=== PATIENT | female | born 1995 | race Caucasian/White ===

== ENCOUNTER 2021-07-12 10:52 | Emergency (ER) | payer OTHER, SELFPAY ==
[2021-07-12 11:09] VITALS: BP 114/82; PULSE 108; RESP 16; TEMP 36.8; O2SAT 100
--- NOTE | 2021-07-12 11:17 | ED.DENTAL ---
HPI - Dental/Oral General Chief complaint: Dental/Oral Stated complaint: toothache Source: patient History of Present Illness HPI Narrative: A 25-year-old female with some history of dental issues with pain in left lower premolar area currently has a dental cap but has surrounding gum inflammation with some left submandibular gland swelling with no fever chills no shortness of breath. MD Complaint: tooth pain Teeth map: 1. dental pain with palpation with a surrounding gum inflammation and tenderness. Onset (ago): day(s) Duration: constant Severity: moderate Severity scale (1-10): 6 Relieving factors: NSAIDs Exacerbating factors: chewing and cold Context: history of dental caries Related Data Allergies Allergy/AdvReac Type Severity Reaction Status Date / Time blue dye Allergy Unknown Verified 07/12/21 11:14 cobalt Allergy Unknown Verified 07/12/21 11:14 nickel Allergy Unknown Verified 07/12/21 11:14 Penicillins Allergy Unknown Verified 07/12/21 11:14 White Grain Vinegar Allergy Unknown Uncoded 07/12/21 11:14 Review of Systems Review of Systems: All systems reviewed & are unremarkable except as noted in HPI and below PMFSH Past Medical History Medical History Patient denies medical problems Exam Const: General: no acute distress and alert Orientation/consciousness: patient oriented x3 HENMT: Head: normal to inspection and contusion Other: left lower molar tenderness with surrounding gum inflammation Eyes: Conjunctivae: conjunctivae normal Pupils: Equal, round and reactive pupils present EOM: EOMs intact bilaterally Neck: Neck: normal visual inspection Chest: Chest palpation & inspection: normal inspection of the chest Resp: Effort & Inspection: normal respiratory effort Cardio: Rate: regular rate Rhythm: regular rhythm GI: GI Palp: Yes Soft to palpation : General: Yes no CVA tenderness Urinary Catheter: Urinary Catheter: patent and draining Skin: General skin exam: normal color Rashes: no rashes Neuro: General: patient oriented x3 Extrem: General: normal to inspection and no pedal edema Psych: Mental Status: mental status grossly normal Affect: normal affect Course Course Emergency Course: patient with history of dental infection and currently having dental pain with surrounding gum inflammation has taken [id number] ibuprofen with minimal relief. Vital Signs Vital signs: Vital Signs Temperature 36.8 C 07/12/21 11:09 Pulse Rate 108 H 07/12/21 11:09 Respiratory Rate 16 07/12/21 11:09 Blood Pressure 114/82 07/12/21 11:09 Pulse Oximetry 100 07/12/21 11:09 Temperature 36.8 C 07/12/21 11:09 Pulse Rate 108 H 07/12/21 11:09 Respiratory Rate 16 07/12/21 11:09 Blood Pressure 114/82 07/12/21 11:09 Pulse Oximetry 100 07/12/21 11:09 Critical Care Time Critical Care Time Critical Care Time: No Discharge Plan Discharge Clinical Impression: Dental abscess Patient Disposition: Home, Self-Care Condition: Stable Instructions: Antibiotic Form, Dental Abscess (ED) Additional Instructions: Take medicine as prescribed and follow-up with dentist as soon as possible for further evaluation and treatment. Prescriptions: New sulfamethoxazole-trimethoprim [Bactrim DS] 800-160 mg tablet 1 tablet PO Q12H Qty: 20 RF: 0 naproxen 500 mg tablet 500 mg PO BID Qty: 14 RF: 0 Follow-up/Referrals: UNKNOWN,DOCTOR [Primary Care Provider] - Stand Alone Forms: Work/School Release IP Time of Disposition: :
== END 2021-07-12 11:31 | disposition home or self-care (01) ==
PROVIDERS: Emergency Provider Emergency Medicine
DX: K04.7 Periapical abscess without sinus (principal)
CPT/HCPCS: 99283

== ENCOUNTER 2021-12-04 20:28 | Emergency (ER) | payer OTHER, SELFPAY ==
[2021-12-04 20:38] VITALS: BP 126/89; PULSE 113; RESP 17; TEMP 36.6; O2SAT 100
== END 2021-12-04 22:25 | disposition left against medical advice (07) ==
LOC: ANHED 22:30
DX: R51.9 Headache, unspecified (principal)
CPT/HCPCS: 99199

== ENCOUNTER 2022-08-22 11:46 | Emergency (ER) | payer OTHER, SELFPAY ==
[2022-08-22 12:04] VITALS: BP 108/89; PULSE 135; RESP 18; TEMP 36.2; O2SAT 100
--- NOTE | 2022-08-22 12:06 | ED.DENTAL ---
HPI - Dental/Oral General Chief complaint: Dental/Oral Stated complaint: tooth pain Time Seen by Provider: 08/22/22 11:50 Source: patient Mode of arrival: ambulatory Limitations: no limitations History of Present Illness HPI Narrative: this is a 26-year-old female with a history of chronic tooth decay and apparently had a right lower molar that cracked and is in pain with surrounding gum inflammation with some tender submandibular gland on the right with no fever chills no nausea vomiting no shortness of breath. Complaint: tooth pain Onset (ago): day(s) Duration: constant Severity: moderate Severity scale (1-10): 7 Relieving factors: nothing Exacerbating factors: nothing Context: history of dental caries Associated symptoms: gum swelling Related Data Home Medications Medication Instructions Recorded Confirmed No Home Medications 12/04/21 12/04/21 Allergies Allergy/AdvReac Type Severity Reaction Status Date / Time blue dye Allergy Unknown Verified 12/04/21 20:40 cobalt Allergy Unknown Verified 12/04/21 20:40 nickel Allergy Unknown Verified 12/04/21 20:40 Penicillins Allergy Unknown Verified 12/04/21 20:40 White Grain Vinegar Allergy Unknown Uncoded 07/12/21 11:14 Review of Systems Review of Systems: All systems reviewed & are unremarkable except as noted in HPI and below PMFSH Past Medical History Medical History Patient denies medical problems Exam Const: General: healthy appearing and no acute distress Limitations: no limitations HENMT: Head: normal to inspection Ears: external ears normal General nose exam: Normal external nose present Other: Patient has right lower jaw and and right submandibular inflammation and tenderness with some tenderness in the right lower molar with some cracked tooth and tooth decay with surrounding gum inflammation Eyes: Conjunctivae: conjunctivae normal Pupils: Equal, round and reactive pupils present Neck: Neck: normal visual inspection Chest: Chest palpation & inspection: normal inspection of the chest Resp: Effort & Inspection: normal respiratory effort Auscultation: clear to auscultation bilaterally Cardio: Rate: regular rate Rhythm: regular rhythm GI: Auscultation: normal bowel sounds Skin: General skin exam: normal color Rashes: no rashes Wounds: no wounds Neuro: General: patient oriented x3, moves all extremities and no meningeal signs Extrem: General: normal to inspection Psych: Affect: normal affect Attitude: cooperative Course Course Emergency Course: patient received IM Toradol 60mg and sent antibiotics and pain medication to her local pharmacy. Critical Care Time Critical Care Time Critical Care Time: No Discharge Plan Discharge Clinical Impression: Dental abscess, Toothache, Fracture of tooth Patient Disposition: Home, Self-Care Condition: Stable Instructions: Antibiotic Form, Dental Abscess (ED), Toothache (ED) Prescriptions: No Action No Home Medications Follow-up/Referrals: UNKNOWN,DOCTOR [Primary Care Provider] - Stand Alone Forms: Work/School Release IP
[2022-08-22] MEDS: KETOROLAC (*BKC) 60 MG/2 ML VIAL IM (12:23)
[2022-08-22 12:48] VITALS: BP 96/72; PULSE 98; RESP 16; TEMP 36.4; O2SAT 100
--- NOTE | 2022-08-22 13:00 | PC.NURSE ---
On 08/22/22, the student, [genesis pizarro ], provided care and completed [facility] documentation on this patient. I have reviewed the student's documentation and agree with the findings.
== END 2022-08-22 13:00 | disposition home or self-care (01) ==
LOC: CHSED 12:18
PROVIDERS: Emergency Provider Emergency Medicine
DX: K04.7 Periapical abscess without sinus (principal); K08.89 Other specified disorders of teeth and supporting structures; S02.5XXA Fracture of tooth (traumatic), initial encounter for closed fracture
CPT/HCPCS: 96372; 99283; J1885

== ENCOUNTER 2023-05-14 19:45 | Emergency (ER) | payer OTHER, SELFPAY ==
--- NOTE | ~2023-05-14 | XR_ITS ---
EXAM: XR finger 4th RT min 2V, XR finger 5th RT min 2V DATE: 05/14/2023 20:20 HISTORY: hit hand on file cabinet. PAIN RIGHT 4TH DIGIT. . COMPARISON: None available. FINDINGS: Normal mineralization. No fracture or dislocation. No lytic or blastic lesion. Joint space s are maintained. No erosion or periosteal change. Soft tissues within normal limits. IMPRESSION: No acute osseous finding in the right fourth or fifth fingers. Reviewed, dictated and finalized at location K. IMPRESSION: No acute osseous finding in the right fourth or fifth fingers.
[2023-05-14 19:55] VITALS: BP 107/81; PULSE 98; O2SAT 97
--- NOTE | 2023-05-14 19:58 | ED.UPPEXIN ---
HPI - Extremity Injury (Upper) General Chief Complaint: Extremity Injury, Upper Stated Complaint: unspecified Time Seen by Provider: 05/14/23 19:55 Source: patient and RN notes reviewed Mode of arrival: ambulatory Limitations: no limitations History of Present Illness complaint: injury to: right and finger ( Fourth and 5th) Onset (ago): minute(s) (30) Other injuries: none Handedness: right Place: home Severity: moderate Relieving factors: rest Exacerbating factors: movement of extremity Context: direct blow ( moving a file cabinet) Associated symptoms: numbness ( 5th finger) Related Data Home Medications Medication Instructions Recorded Confirmed No Home Medications 05/14/23 05/14/23 Allergies Allergy/AdvReac Type Severity Reaction Status Date / Time blue dye Allergy Unknown Verified 05/14/23 20:44 cobalt Allergy Unknown Verified 05/14/23 20:44 nickel Allergy Unknown Verified 05/14/23 20:44 Penicillins Allergy Unknown Verified 05/14/23 20:44 White Grain Vinegar Allergy Unknown Uncoded 07/12/21 11:14 Review of Systems Review of Systems: All systems reviewed & are unremarkable except as noted in HPI and below PMFSH Past Medical History Medical History Patient denies medical problems Exam Const: General: healthy appearing, no acute distress and alert Nutritional Appearance: well nourished and thin Orientation/consciousness: patient oriented x3 Limitations: no limitations Other: female tech in room during examination. HENMT: Head: normal to inspection Ears: external ears normal Face/Nose/Sinus: Normal external nose present Face and sinus: normal facial exam Mouth: Yes moist mucous membranes Eyes: Conjunctivae: conjunctivae normal Pupils: Equal, round and reactive pupils present EOM: EOMs intact bilaterally Neck: Neck: normal visual inspection Resp: Effort & Inspection: normal respiratory effort Auscultation: clear to auscultation bilaterally Cardio: Rate: regular rate Rhythm: regular rhythm GI: GI Palp: Yes Soft to palpation and No Tenderness to palpation present (GI) Auscultation: normal bowel sounds Back/Spine/Pelvis: Cervical Spine: cervical ROM normal Thoracic/Lumbar Spine: thoraco-lumbar ROM normal Skin: General skin exam: normal color Rashes: no rashes Neuro: General: patient oriented x3, moves all extremities, no focal motor deficits and CN's II-XI intact bilaterally Speech: normal speech Gait exam (Neuro): Normal gait present Extrem: General: normal exam except as noted and no clubbing, cyanosis or edema Right upper extremity: Extremity exam: right hand normal capillary refill, neurosensory exam normal, tendon exam normal, tenderness of the 4th digit and of the 5th digit and no swelling Psych: Mental Status: mental status grossly normal Affect: normal affect Attitude: cooperative Course Vital Signs Vital signs: Vital Signs Pulse Rate 98 05/14/23 19:55 Blood Pressure 107/81 05/14/23 19:55 Pulse Oximetry 97 05/14/23 19:55 Oxygen Delivery Room Air 05/14/23 19:55 Temperature 36.7 C 05/14/23 21:29 Pulse Rate 83 05/14/23 21:29 Respiratory Rate 17 05/14/23 21:29 Blood Pressure 106/69 05/14/23 21:29 Pulse Oximetry 99 05/14/23 21:29 Oxygen Delivery Room Air 05/14/23 21:29 MDM - Extremity Injury (Upper) Differential Diagnosis Differential diagnosis: Likely finger sprain, dislocation of finger and fracture of hand Discharge Plan Discharge Clinical Impression: Contusion of finger of right hand Qualifiers: Encounter type: initial encounter Finger: little finger Damage to nail status: without damage Qualified Code(s): S60.051A - Contusion of right little finger without damage to nail, initial encounter Contusion of finger Qualifiers: Encounter type: initial encounter Finger: ring finger Damage to nail status: without damage Laterality: right Qualified Code(s): S60.0
[2023-05-14 21:29] VITALS: BP 106/69; PULSE 83; RESP 17; TEMP 36.7; O2SAT 99
== END 2023-05-14 21:32 | disposition home or self-care (01) ==
PROVIDERS: Emergency Provider Emergency Medicine
DX: S60.051A Contusion of right little finger without damage to nail, initial encounter (principal); S60.041A Contusion of right ring finger without damage to nail, initial encounter; W22.09XA Striking against other stationary object, initial encounter
CPT/HCPCS: 73140; 99283

== ENCOUNTER 2023-06-01 20:33 | Emergency (ER) | payer OTHER, SELFPAY ==
[2023-06-01 20:33] VITALS: BP 106/80; PULSE 105; RESP 20; TEMP 37.3; O2SAT 98
[2023-06-01 21:18] LABS: Strep Group A RT-PCR NOT DETECTED (Negative)
--- NOTE | 2023-06-01 21:25 | ED.GENADULT ---
HPI - General Adult General Chief complaint: Upper Respiratory Infection Stated complaint: Sinus Congestion Time Seen by Provider: 06/01/23 21:21 History of Present Illness HPI narrative: the patient is a 27-year-old woman who has had symptoms for the last 48 hours of nasal congestion, rhinorrhea, occasional sore throat, occasional dry cough. No fevers or chills. She took off of work yesterday and today, 06/01/2023. She has requested to have a work note to return back to work. No other complaints. No abdominal pain. No chest pain. No urinary symptoms such as urgency or frequency. No earache. Related Data Home Medications Medication Instructions Recorded Confirmed No Home Medications 05/14/23 06/01/23 Allergies Allergy/AdvReac Type Severity Reaction Status Date / Time blue dye Allergy Unknown Verified 06/01/23 20:42 cobalt Allergy Unknown Verified 06/01/23 20:42 nickel Allergy Unknown Verified 06/01/23 20:42 Penicillins Allergy Unknown Verified 06/01/23 20:42 White Grain Vinegar Allergy Unknown Uncoded 06/01/23 20:42 Review of Systems Review of Systems: All systems reviewed & are unremarkable except as noted in HPI and below Constitutional: Constitutional: Denies chills, Denies excessive sweating, Denies fatigue, Denies fever(s), Denies headache(s) and Denies weakness Eyes: Eyes: Denies change in vision and Denies photophobia ENT: Denies dysphagia, Denies dizziness, Denies headache(s), Denies lip swelling, Reports nasal congestion, Reports sore throat and Denies tongue swelling Cardiovascular: Cardiovascular: Denies chest pain, Denies syncope, Denies rapid heart rate and Denies dyspnea Respiratory: Respiratory: Reports cough, Denies dyspnea and Denies wheezing Gastrointestinal: Gastrointestinal: Denies abdominal pain, Denies constipation, Denies dysphagia, Denies diarrhea, Denies nausea and Denies vomiting Genitourinary: Genitourinary: Denies hematuria, Denies urinary frequency, Denies dysuria and Denies urinary urgency Musculoskeletal: Musculoskeletal: Denies back pain, Denies myalgias, Denies arthralgias, Denies joint swelling and Denies numbness Integumentary/Breasts: Skin/Breast: Denies pruritus, Denies erythema and Denies rash Neurologic: Denies confusion, Denies dizziness, Denies syncope, Denies headache(s), Denies focal weakness, Denies numbness and Denies weakness Psychiatric: Psychiatric: Denies anxiety and Denies confusion Endocrine: Endocrine: Denies excessive sweating and Denies fatigue Hematologic/Lymphatic: Hematologic/Lymphatic: Denies easy bleeding and Denies easy bruising Allergic/Immunologic: Allergic/Immunologic: Denies lip swelling, Denies tongue swelling and Denies wheezing PMFSH Past Medical History Medical History Patient denies medical problems Exam Const: General: healthy appearing, no acute distress, alert and well nourished Nutritional Appearance: well nourished Orientation/consciousness: patient oriented x3 Limitations: no limitations HENMT: Head: normal to inspection Ears: external ears normal Face/Nose/Sinus: normal facial exam Face and sinus: normal facial exam Mouth: Yes moist mucous membranes Throat: posterior oropharynx normal Eyes: Conjunctivae: conjunctivae normal Pupils: Equal, round and reactive pupils present EOM: EOMs intact bilaterally Neck: Neck: normal visual inspection and no meningeal signs Chest: Chest palpation & inspection: normal inspection of the chest and no tenderness Resp: Effort & Inspection: normal respiratory effort and not labored Auscultation: clear to auscultation bilaterally, no crackles, no rhonchi and no wheezes Cardio: Rate: regular rate Rhythm: regular rhythm Heart sounds: no murmurs GI: Inspection: non-distended GI Palp: Yes Soft to palpation, No Tenderness to palpation present (GI), No Guarding due to palpation present (GI) and No Rebound tenderness present :
[2023-06-01 21:40] VITALS: BP 115/58; PULSE 95; RESP 18; O2SAT 98
== END 2023-06-01 21:41 | disposition home or self-care (01) ==
PROVIDERS: Emergency Provider Emergency Medicine
DX: J06.9 Acute upper respiratory infection, unspecified (principal)
CPT/HCPCS: 87651; 99283

== ENCOUNTER 2024-08-25 16:40 | Emergency (ER) | payer OTHER, SELFPAY ==
--- NOTE | ~2024-08-25 | XR_ITS ---
EXAMINATION: XR ribs LT 2V w CXR 2V DATE: 08/25/2024 17:24 INDICATION: Left chest pain. Fall. TECHNIQUE: Frontal and lateral views of the chest on 3 radiographs and 2 views on 3 radiographs of th e left ribs were obtained. COMPARISON: Chest 2 views 09/08/2017 FINDINGS: CHEST TWO VIEWS: There is no pneumonia, pleural effusion, or pneumothorax. The heart size is normal. LEFT RIBS: There is no rib fracture. IMPRESSION: 1. No rib fracture. Reviewed, dictated and finalized at location A. IMPRESSION: 1. No rib fracture.
--- NOTE | ~2024-08-25 | XR_ITS ---
EXAMINATION: XR knee RT 3V DATE: 08/25/2024 17:25 INDICATION: Right knee pain. Fall. TECHNIQUE: 3 views of right knee were obtained. COMPARISON: Right knee radiograph 08/23/2014 FINDINGS: Alignment is normal. No fracture. Joint spaces are normal. No knee joint effusion. IMPRESSION: 1. Normal right knee. Reviewed, dictated and finalized at location A. IMPRESSION: 1. Normal right knee.
[2024-08-25 16:41] VITALS: BP 129/88; PULSE 131; RESP 18; TEMP 36.8; O2SAT 97
--- NOTE | 2024-08-25 16:44 | ED.FALL ---
HPI - Fall General Chief Complaint: Extremity Injury, Lower Stated Complaint: knee pain Time Seen by Provider: 08/25/24 16:43 Source: patient and family Mode of arrival: ambulatory Limitations: no limitations History of Present Illness HPI Narrative: Patient is a 28-year-old female with left ribs and right knee injury after using the hover board yesterday. complaint: fall Onset (ago): day(s) (2) Fall from: from height (distance) ( Hover board) Fall witnessed: yes, by bystander Place fall occurred: street Loss of consciousness: none Prolonged down time: no Symptoms prior to fall: none Context: tripped/slipped Location of injury: other ( left ribs and right knee) Severity: moderate Severity scale (1-10): 4 Quality: sharp Associated symptoms (after fall): denies Related Data Allergies Allergy/AdvReac Type Severity Reaction Status Date / Time blue dye Allergy Unknown Verified 08/25/24 16:43 cobalt Allergy Unknown Verified 08/25/24 16:43 nickel Allergy Unknown Verified 08/25/24 16:43 Penicillins Allergy Unknown Verified 08/25/24 16:43 White Grain Vinegar Allergy Unknown Uncoded 08/25/24 16:43 Review of Systems Review of Systems: All systems reviewed & are unremarkable except as noted in HPI and below Constitutional: Constitutional: Reports no additional constitutional complaints Eyes: Eyes: Reports no additional eye complaints ENT: Reports system reviewed and no additional complaints, except as documented Cardiovascular: Cardiovascular: Reports no additional cardiovascular complaints Respiratory: Respiratory: Reports no additional respiratory complaints Gastrointestinal: Gastrointestinal: Reports no additional gastrointestinal complaints Genitourinary: Genitourinary: Reports no additional female genitourinary complaints Musculoskeletal: Musculoskeletal: Reports no additional musculoskeletal complaints Integumentary/Breasts: Skin/Breast: Reports system reviewed and no additional complaints, except as docu Neurologic: Reports system reviewed and no additional complaints, except as documented Psychiatric: Psychiatric: Reports no additional psychiatric complaints Endocrine: Endocrine: Reports no additional endocrine complaints Hematologic/Lymphatic: Hematologic/Lymphatic: Reports no additional hematologic/lymphatic complaints Allergic/Immunologic: Allergic/Immunologic: Reports no additional allergic/immunologic complaints PMFSH Past Medical History Medical History Patient denies medical problems Exam Const: General: healthy appearing Nutritional Appearance: well nourished Orientation/consciousness: patient oriented x3 HENMT: Head: normal to inspection Ears: external ears normal Face/Nose/Sinus: Normal external nose present Face and sinus: normal facial exam Mouth: Yes Normal oral and palatal mucosa present Teeth and gingiva: dentition normal Eyes: Conjunctivae: conjunctivae normal Pupils: Equal, round and reactive pupils present EOM: EOMs intact bilaterally Neck: Neck: normal visual inspection Chest: Chest palpation & inspection: abnormal inspection of the chest Other: tender left ribs around 7-8 without bruising and questionable deformity Resp: Effort & Inspection: normal respiratory effort and not labored Auscultation: clear to auscultation bilaterally and no crackles Cardio: Rate: regular rate Rhythm: regular rhythm Heart sounds: no murmurs GI: Inspection: non-distended GI Palp: Yes Soft to palpation and No Tenderness to palpation present (GI) Auscultation: normal bowel sounds : General: Yes bladder normal to palpation Back/Spine/Pelvis: Back: no CVA tenderness Skin: General skin exam: normal color Rashes: no rashes Wounds: wound noted Other: left hip has a topical abrasion without infection Neuro: General: patient oriented x3 Cranial nerves: Yes Nystagmus not present Speech: normal speech Gait e
--- NOTE | 2024-08-25 16:46 | PC.NURSE ---
ERP states hold Toradol until test results.
[2024-08-25 16:57] LABS: Pregnancy On Board Control Positive; Urine Pregnancy Test Negative
[2024-08-25] MEDS: KETOROLAC (*BKC) 60 MG/2 ML VIAL IM (17:05)
[2024-08-25 17:45] VITALS: BP 114/70; PULSE 80; RESP 17; TEMP 36.8; O2SAT 100
== END 2024-08-25 17:45 | disposition home or self-care (01) ==
PROVIDERS: Emergency Provider Emergency Medicine
DX: S20.212A Contusion of left front wall of thorax, initial encounter (principal); S80.01XA Contusion of right knee, initial encounter; W01.0XXA Fall on same level from slipping, tripping and stumbling without subsequent striking against object, initial encounter
CPT/HCPCS: 71046; 71100; 73562; 81025; 96372; 99284; J1885

== ENCOUNTER 2024-12-09 16:07 | Emergency (ER) | payer OTHER, SELFPAY ==
[2024-12-09 16:07] VITALS: BP 132/70; PULSE 90; RESP 18; TEMP 36.6; O2SAT 100
--- NOTE | 2024-12-09 17:28 | ED_ITS ---
HPI - Dental/Oral General Chief complaint: Dental/Oral Stated complaint: dental pain Time Seen by Provider: 12/09/24 16:20 Source: patient Mode of arrival: ambulatory Limitations: no limitations History of Present Illness HPI Narrative: patient is a 29-year-old female with significant past medical history that presents today for tooth pain. Patient has a tooth abscess on the bottom right back molar. The tooth is chipped and half and is not full soft with. Is for an abscess around tooth. See says she will go see a dentist but she says that might be a while. Complaint: tooth pain and tooth injury Location: Tooth # Teeth map: 2 1. Tooth abscess Onset (ago): day(s) Duration: constant Severity: moderate Severity scale (1-10): 6 Relieving factors: NSAIDs Exacerbating factors: chewing and cold Context: history of dental caries Associated symptoms: gum swelling Treatment prior to arrival: none Related Data Allergies Allergy/AdvReac Type Severity Reaction Status Date / Time blue dye Allergy Unknown Verified 08/25/24 16:43 cobalt Allergy Unknown Verified 08/25/24 16:43 nickel Allergy Unknown Verified 08/25/24 16:43 Penicillins Allergy Unknown Verified 08/25/24 16:43 White Grain Vinegar Allergy Unknown Uncoded 08/25/24 16:43 Review of Systems 2 Review of Systems: All systems reviewed & are unremarkable except as noted in HPI and below Constitutional: Constitutional: Reports as per HPI Eyes: Eyes: Reports no additional eye complaints ENT: Reports system reviewed and no additional complaints, except as documented Cardiovascular: Cardiovascular: Reports no additional cardiovascular complaints Respiratory: Respiratory: Reports no additional respiratory complaints Gastrointestinal: Gastrointestinal: Reports no additional gastrointestinal complaints Genitourinary: Genitourinary: Reports no additional female genitourinary complaints Musculoskeletal: Musculoskeletal: Reports no additional musculoskeletal complaints Integumentary/Breasts: Skin/Breast: Reports system reviewed and no additional complaints, except as docu Neurologic: Reports system reviewed and no additional complaints, except as documented Psychiatric: Psychiatric: Reports no additional psychiatric complaints Endocrine: Endocrine: Reports no additional endocrine complaints Hematologic/Lymphatic: Hematologic/Lymphatic: Reports no additional hematologic/lymphatic complaints Allergic/Immunologic: Allergic/Immunologic: Reports no additional allergic/immunologic complaints PMFSH Past Medical History Medical History Patient denies medical problems Exam 2 Const: General: healthy appearing Nutritional Appearance: well nourished Orientation/consciousness: patient oriented x3 Limitations: no limitations HENMT: Head: normal to inspection Ears: external ears normal F isaias/Nose/Sinus: Normal external nose present Face and sinus: normal facial exam Mouth: Yes Normal oral and palatal mucosa present Teeth and gingiva: abnormal tooth and associated gingiva Throat: posterior oropharynx normal Eyes: Conjunctivae: conjunctivae normal Pupils: Equal, round and reactive pupils present EOM: EOMs intact bilaterally Direct Ophthalmoscopy: no photophobia Neck: Neck: normal visual inspection Chest: Chest palpation & inspection: normal inspection of the chest Resp: Effort & Inspection: normal respiratory effort Auscultation: clear to auscultation bilaterally Cardio: Rate: regular rate Rhythm: regular rhythm GI: GI Palp: Yes Soft to palpation : General: Yes bladder normal to palpation External Female Exam: normal external appearance Speculum Exam - Vagina: normal appearance of the vagina Speculum Exam - Cervix: normal appearance of the cervix Bimanual exam- vagina & uterus: cervical motion tenderness Bimanual Exam- Adnexa, other: no masses OB/external & speculum: herpetic lesions Back/Spine/Pelvis: Back: no CVA tenderness Skin: General skin exam: normal color Rashes: no rashes Wounds: no wounds Neuro: General: patient oriented x3 Cranial nerves: Yes Nystagmus not present Speech: normal speech Extrem: General: normal to inspection Psych: Mental Status: mental status grossly normal Affect: normal affect Course Vital Signs Vital signs: Vital Signs Temperature 97.8 F 12/09/24 16:07 Pulse Rate 90 12/09/24 16:07 Respiratory Rate 18 12/09/24 16:07 Blood Pressure 132/70 12/09/24 16:07 Pulse Oximetry 100 12/09/24 16:07 Oxygen Delivery Room Air 12/09/24 16:07 Temperature 97.8 F 12/09/24 16:07 Pulse Rate 90 12/09/24 16:07 Respiratory Rate 18 12/09/24 16:07 Blood Pressure 132/70 12/09/24 16:07 Pulse Oximetry 100 12/09/24 16:07 Oxygen Delivery Room Air 12/09/24 16:07 MDM - Dental/Oral MDM Narrative Medical decision making narrative: patient clearly has a dental abscess on the bottom back right molar. The tooth is chipped and there is not much left to thin his open expose. I explained her shoe needs to see a dentist as soon as possible because these will keep eating affecting mostly gets fixed. She understands this and says she will try it again see dentist as soon as she can. For now will give her clindamycin and started on here and send the rest her pharmacy. Differential Diagnosis Differential diagnosis: Likely dental caries and dental abscess Medical Records Attestation: I reviewed the patient's medical records. Lab Data Attestation: I reviewed the patient's lab results. Discharge Plan Discharge Clinical Impression: Dental abscess, Toothache Patient Disposition: Home, Self-Care Condition: Stable Instructions: Antibiotic Form, Dental Abscess (ED) Additional Instructions: Follow up with dentist as soon as possible. Patient Language: Panamanian Prescriptions: New clindamycin HCl 300 mg capsule 300 mg PO TID Qty: 30 0RF No Action tramadol 50 mg tablet 50 mg PO Q8H PRN (Reason: pain) Qty: 20 0RF Rx Instructions: 1-2 tabs per dose Follow-up/Referrals: UNKNOWN,DOCTOR [Primary Care Provider] - Stand Alone Forms: Work/School Release IP Time of Disposition: 17:39
[2024-12-09] MEDS: CLINDAMYCIN HCL 150 MG CAP 300 MG PO (17:33)
[2024-12-09 17:53] VITALS: BP 130/76; PULSE 82; RESP 18; O2SAT 100
== END 2024-12-09 17:53 | disposition home or self-care (01) ==
PROVIDERS: Emergency Provider Family Medicine
DX: K04.7 Periapical abscess without sinus (principal)
CPT/HCPCS: 99283; A9270

== ENCOUNTER 2025-01-01 15:33 | Emergency (ER) | payer OTHER, SELFPAY ==
[2025-01-01 15:33] VITALS: BP 138/94; PULSE 87; RESP 17; TEMP 36.4; O2SAT 98
--- NOTE | 2025-01-01 15:52 | ED_ITS ---
HPI - Dental/Oral General Chief complaint: Dental/Oral Stated complaint: dental pain Time Seen by Provider: 01/01/25 15:46 Source: patient Mode of arrival: ambulatory Limitations: no limitations History of Present Illness HPI Narrative: dental pain for months, worse over the last few days, last seen by a dentist over 2 years ago. She denies any fever, chills, headache, trouble swallowing or breathing patient had a course of clindamycin 1 not ago with some improvement but the infection is back again. patient is telling me amoxicillin is the best medicine for her dental infection. Related Data Allergies Allergy/AdvReac Type Severity Reaction Status Date / Time blue dye Allergy Unknown Verified 01/01/25 15:42 cobalt Allergy Unknown Verified 01/01/25 15:42 nickel Allergy Unknown Verified 01/01/25 15:42 Penicillins Allergy Unknown Verified 01/01/25 15:42 White Grain Vinegar Allergy Unknown Uncoded 01/01/25 15:42 Review of Systems Review of Systems: All systems reviewed & are unremarkable except as noted in HPI and below PMFSH Past Medical History Medical History Patient denies medical problems Exam Narrative: General appearance: Well-developed, well-nourished Skin: Normal color Head: Normocephalic, nontraumatic Eyes: Clear conjunctiva ENT: Widespread dental caries Neck: Supple, nontender Neurologic: Alert and oriented ?3, [employer]ER is normal as tested, no gross motor deficit Course Vital Signs Vital signs: Vital Signs Temperature 36.4 C 01/01/25 15:33 Pulse Rate 87 01/01/25 15:33 Respiratory Rate 17 01/01/25 15:33 Blood Pressure 138/94 H 01/01/25 15:33 Pulse Oximetry 98 01/01/25 15:33 Oxygen Delivery Room Air 01/01/25 15:33 Temperature 36.4 C 01/01/25 15:33 Pulse Rate 87 01/01/25 15:33 Respiratory Rate 17 01/01/25 15:33 Blood Pressure 138/94 H 01/01/25 15:33 Pulse Oximetry 98 01/01/25 15:33 Oxygen Delivery Room Air 01/01/25 15:33 Critical Care Time Critical Care Time Critical Care Time: No Discharge Plan Discharge Clinical Impression: Toothache, Dental caries, Gingivitis Patient Disposition: Home, Self-Care Condition: Stable Instructions: Antibiotic Form, Toothache (ED) Additional Instructions: Return if symptoms are worsening , call your family physician for appointment, take Tylenol, ibuprofen as as needed for aches and pain, continue home medications. Patient Language: Arabic Prescriptions: New amoxicillin 875 mg tablet 875 mg PO Q12H Qty: 20 0RF ibuprofen [IBU] 800 mg tablet 800 mg PO TID Qty: 20 0RF No Action tramadol 50 mg tablet 50 mg PO Q8H PRN (Reason: pain) Qty: 20 0RF Rx Instructions: 1-2 tabs per dose clindamycin HCl 300 mg capsule 300 mg PO TID Qty: 30 0RF Follow-up/Referrals: UNKNOWN,DOCTOR [Primary Care Provider] -
[2025-01-01 16:10] VITALS: BP 138/94; PULSE 87; RESP 17; TEMP 36.4; O2SAT 98
== END 2025-01-01 16:10 | disposition home or self-care (01) ==
PROVIDERS: Emergency Provider Emergency Medicine
DX: K02.9 Dental caries, unspecified (principal); K05.10 Chronic gingivitis, plaque induced
CPT/HCPCS: 99283

== ENCOUNTER 2025-10-03 14:26 | Emergency (ER) | payer OTHER, SELFPAY ==
[2025-10-03 14:27] VITALS: BP 116/82; PULSE 92; RESP 20; TEMP 36.6; O2SAT 98
--- NOTE | 2025-10-03 14:28 | ED_ITS ---
HPI - Dental/Oral General Chief complaint: Dental/Oral Stated complaint: toothache Time Seen by Provider: 10/03/25 14:28 Source: patient Mode of arrival: ambulatory Limitations: no limitations History of Present Illness HPI Narrative: Dental pain upper and lower mainly left lower started 4 days ago. She denies any fever, chills, nausea, vomiting, trouble swallowing or breathing or headache. History of similar symptoms, was seen by a dentist last ED. Related Data Allergies Allergy/AdvReac Type Severity Reaction Status Date / Time blue dye Allergy Unknown Verified 10/03/25 14:32 cobalt Allergy Unknown Verified 10/03/25 14:32 nickel Allergy Unknown Verified 10/03/25 14:32 Penicillins Allergy Unknown Verified 10/03/25 14:32 White Grain Vinegar Allergy Unknown Uncoded 01/01/25 15:42 Review of Systems Review of Systems: All systems reviewed & are unremarkable except as noted in HPI and below PMFSH Past Medical History Medical History Patient denies medical problems Exam Narrative: General appearance: Well-developed, well-nourished Skin: Normal color Head: Normocephalic, nontraumatic Eyes: Clear conjunctiva ENT: Oropharynx normal, ears normal, nose normal widespread dental decay and caries bilaterally at the lower side, no abscess formation Neck: Supple, nontender Neurologic: Alert and oriented ?3, [employer]PER[employer] is normal as tested, no gross motor deficit MDM - Dental/Oral MDM Narrative Medical decision making narrative: Dental caries Critical Care Time Critical Care Time Critical Care Time: No Discharge Plan Discharge Clinical Impression: Dental caries Patient Disposition: Home Condition: Stable Instructions: Antibiotic Form, Toothache (ED) Additional Instructions: Return if symptoms are worsening , call your dentist for appointment, take Tylenol as as needed for aches and pain, continue home medications. Patient Language: Serbian Prescriptions: New clindamycin HCl [Cleocin HCl] 300 mg capsule 300 mg PO Q6H Qty: 40 0RF ibuprofen [IBU] 800 mg tablet 800 mg PO TID Qty: 20 0RF No Action ibuprofen [IBU] 800 mg tablet 800 mg PO TID Qty: 20 0RF tramadol 50 mg tablet 50 mg PO Q8H PRN (Reason: pain) Qty: 20 0RF Rx Instructions: 1-2 tabs per dose Follow-up/Referrals: Albino Chaparro MD [Primary Care Provider, Internal Medicine] Stand Alone Forms: Work/School Release IP
[2025-10-03] MEDS: IBUPROFEN 400 MG TABLET 800 MG PO (14:37)
== END 2025-10-03 14:42 | disposition home or self-care (01) ==
LOC: CHSED 14:49
PROVIDERS: Emergency Provider Emergency Medicine; PCP Family Medicine
DX: K02.9 Dental caries, unspecified (principal)
CPT/HCPCS: 99283; A9270